=== PATIENT | male | born 1985 | race Two or more races ===

== ENCOUNTER 2021-12-14 06:03 | Emergency (ER) | payer OTHER ==
[~2021-12-14] VITALS: Ht 170.2 cm; Wt 65.7 kg
[2021-12-14 06:11] VITALS: BP 118/81
[2021-12-14] MEDS ORDERED: IBUP800T27 PO (07:40)
== END 2021-12-14 07:50 | disposition home or self-care (01) ==
LOC: ER 06:14
DX: S63.601A Unspecified sprain of right thumb, initial encounter (principal); X50.1XXA Overexertion from prolonged static or awkward postures, initial encounter; Y93.89 Activity, other specified; Y92.89 Other specified places as the place of occurrence of the external cause; Y99.8 Other external cause status
CPT/HCPCS: 73130